=== PATIENT | male | born 1960 | race Caucasian/White ===

== ENCOUNTER 2018-05-11 08:12 | Emergency (ER) | payer SELFPAY ==
[2018-05-11] MEDS: KETOROLAC 60 MG/2 ML INJ. IM (09:13)
== END 2018-05-11 09:28 | disposition home or self-care (01) ==
LOC: ER 09:28
DX: M54.40 Lumbago with sciatica, unspecified side (principal); I25.10 Atherosclerotic heart disease of native coronary artery without angina pectoris
CPT/HCPCS: 96372; 99283; J1885

== ENCOUNTER 2018-05-22 12:41 | Emergency (ER) | payer SELFPAY | END 2018-05-22 13:35 | disposition home or self-care (01) | LOC: ER 13:35 | DX: M54.42 Lumbago with sciatica, left side (principal); I25.10 Atherosclerotic heart disease of native coronary artery without angina pectoris | CPT/HCPCS: 99283 ==